=== PATIENT | female | born 1960 | race Caucasian/White ===

== ENCOUNTER 2018-08-20 17:03 | Emergency (ER) | payer OTHER ==
[~2018-08-20] VITALS: Ht 162.6 cm; Wt 49.9 kg
[2018-08-20 17:13] VITALS: BP 179/99
--- NOTE | 2018-08-20 17:18 | NUR ---
PLACED ON WHEELCHAIR-, TAKEN TO ER LOBBY TO WAIT FOR AVAILABLE ROOM FOR MD DE ANDA. PT'S FAMILY MEMBER WITH HER
--- NOTE | 2018-08-20 19:47 | NUR ---
PT taken to bed 03 by wheelchair.
[2018-08-20] MEDS ORDERED: NACL 0.9% 1,000 ML IV ONE (20:15)
--- NOTE | 2018-08-20 20:21 | NUR ---
EKG PERFORMED AT BEDSIDE. PT COVERED IN GOWN AND BLANKET
[2018-08-20 21:09] LABS: BASOPHILS % (AUTO) 0.8 % (0.0-2.0); EOSINOPHILS % (AUTO) 0.8 % (0.0-4.0); HEMATOCRIT 41.8 % (36-48); HEMOGLOBIN 13.7 g/dL (12.0-16.0); LYMPHOCYTES # (AUTO) 1.6 K/uL (2.5-16.5); LYMPHOCYTES % (AUTO) 31.5 % (20.5-51.1); MEAN CORPUSCULAR HEMOGLOBIN 32 pg (27-31); MEAN CORPUSCULAR HGB CONC 33 g/dL (33-37); MEAN CORPUSCULAR VOLUME 98.7 fL (80-94); MONOCYTES # (AUTO) 0.3 K/uL (0.8-1.0); MONOCYTES % (AUTO) 6.5 % (1.7-9.3); NEUTROPHILS # (AUTO) 3.1 K/uL (1.8-7.7); NEUTROPHILS % (AUTO) 60.4 % (42.2-75.2); PLATELET COUNT (AUTO) 254 K/uL (140-450); RED BLOOD CELL COUNT(AUTO) 4.23 MIL/uL (4.20-5.40); RED CELL DISTRIBUTION WIDTH 13.2 % (11.6-13.7); WHITE BLOOD COUNT (AUTO) 5.2 K/uL (4.8-10.8)
[2018-08-20 21:10] LABS: PROTHROMBIN TIME 9.3 secs (10.8-13.4)
[2018-08-20 21:11] LABS: ANION GAP 15.7 (8-16); CARBON DIOXIDE 24.1 mmol/L (21-32); CREATININE 0.8 mg/dL (0.6-1.3); POTASSIUM 3.8 mmol/L (3.5-5.1); TOTAL BILIRUBIN 0.3 mg/dL (0.0-1.0)
[2018-08-20 21:12] LABS: ALBUMIN 4.1 g/dL (3.4-5.0)
[2018-08-20] MEDS ORDERED: LORazepam 2 MG/ML VIAL IVP ONE (21:20)
[2018-08-20 21:56] LABS: APPEARANCE,URINE CLEAR (CLEAR); BILIRUBIN,URINE NEGATIVE (NEGATIVE); BLOOD, URINE NEGATIVE (NEGATIVE); COLOR,URINE YELLOW (YELLOW); LEUKOCYTE ESTERASE ,URINE NEGATIVE (NEGATIVE); NITRITE, URINE NEGATIVE (NEGATIVE); UGLUCOSE NEGATIVE (NEGATIVE)
[2018-08-20 22:20] VITALS: BP 151/49
== END 2018-08-20 22:21 | disposition home or self-care (01) ==
LOC: MED 17:03
DX: F43.9 Reaction to severe stress, unspecified (principal); I10 Essential (primary) hypertension; G43.909 Migraine, unspecified, not intractable, without status migrainosus
CPT/HCPCS: 36415; 70450; 71045; 80053; 81003; 84484; 85025; 85610; 85730; 93005; 96374; 99284; J2060; J7030

== ENCOUNTER 2023-04-21 18:01 | Observation (INO) | payer OTHER ==
[~2023-04-21] VITALS: Ht 157.5 cm; Wt 59.0 kg
[2023-04-21 18:03] VITALS: BP 169/80; PULSE 110; RESP 20; TEMP 98.8; O2SAT 99
[2023-04-21] MEDS ORDERED: MORPHINE SULFATE 4 MG/ML SYR IVP ONE (19:20)
[2023-04-21] MEDS ORDERED: ONDANSETRON 4 MG/2 ML VIAL IVP ONE (19:20)
[2023-04-21 19:22] LABS: BASOPHILS # (AUTO) 0.1 K/uL (0.00-0.22); BASOPHILS % (AUTO) 0.7 % (0.0-2.0); EOSINOPHILS # (AUTO) 0.1 K/uL (0-0.4); EOSINOPHILS % (AUTO) 0.7 % (0.0-4.0); HEMATOCRIT 41.5 % (36-48); HEMOGLOBIN 14.2 g/dL (12.0-16.0); LYMPHOCYTES # (AUTO) 2.2 K/uL (2.5-16.5); LYMPHOCYTES % (AUTO) 23.6 % (20.5-51.1); MEAN CORPUSCULAR HEMOGLOBIN 32 pg (27-31); MEAN CORPUSCULAR HGB CONC 34 g/dL (33-37); MEAN CORPUSCULAR VOLUME 93.2 fL (80-94); MONOCYTES # (AUTO) 0.5 K/uL (0.8-1.0); MONOCYTES % (AUTO) 5.5 % (1.7-9.3); NEUTROPHILS # (AUTO) 6.5 K/uL (1.8-7.7); NEUTROPHILS % (AUTO) 69.5 % (42.2-75.2); PLATELET COUNT (AUTO) 274 K/uL (140-450); RED BLOOD CELL COUNT(AUTO) 4.45 MIL/uL (4.20-5.40); RED CELL DISTRIBUTION WIDTH 13.8 % (11.6-13.7); WHITE BLOOD COUNT (AUTO) 9.3 K/uL (4.8-10.8)
[2023-04-21 19:33] LABS: ALBUMIN 4.1 g/dL (3.4-5.0); ANION GAP 16.2 (8-16); CALCIUM 9.2 mg/dL (8.5-10.1); CARBON DIOXIDE 25.1 mmol/L (21-32); CREATININE 0.9 mg/dL (0.6-1.3); POTASSIUM 4.3 mmol/L (3.5-5.1); TOTAL BILIRUBIN 0.2 mg/dL (0.0-1.0); TOTAL PROTEIN, SERUM 7.7 g/dL (6.4-8.2)
[2023-04-21] MEDS ORDERED: diphenhydrAMINE 50 MG/ML VIAL IVP ONE (19:55)
[2023-04-21] MEDS ORDERED: ACETAMINOPHEN 325 MG TAB PO PRN (21:15)
[2023-04-21] MEDS ORDERED: ONDANSETRON 4 MG/2 ML VIAL IVP PRN (21:15)
[2023-04-21 21:35] LABS: APPEARANCE,URINE CLEAR (CLEAR); BILIRUBIN,URINE NEGATIVE (NEGATIVE); BLOOD, URINE TRACE-I (NEGATIVE); COLOR,URINE YELLOW (YELLOW); LEUKOCYTE ESTERASE ,URINE NEGATIVE (NEGATIVE); NITRITE, URINE NEGATIVE (NEGATIVE); PROTEIN,URINE NEGATIVE (NEGATIVE); UGLUCOSE NEGATIVE (NEGATIVE); UROBILINOGEN,URINE 0.2 EU/dL (0.2 - 1)
[2023-04-21 21:41] LABS: BACTERIA,URINE FEW /HPF (None Seen); RBC,URINE 0-5 /HPF (0-5); SQUAMOUS EPITHELIAL CELL,UR 0-3 (FEW) /LPF (0-3 (FEW)); WBC,URINE 0-5 /HPF (0-5)
[2023-04-21] MEDS ORDERED: QUET25TA PO (21:49)
[2023-04-21] MEDS ORDERED: PRAZ1CAP5 PO (21:49)
[2023-04-21] MEDS ORDERED: NIFE-184 PO (21:49)
[2023-04-21] MEDS ORDERED: LURA20TA PO (21:49)
[2023-04-21] MEDS ORDERED: LURA60TA PO (21:49)
[2023-04-21] MEDS ORDERED: DULO20EC PO (21:49)
[2023-04-21] MEDS ORDERED: SERT-515 PO (21:49)
[2023-04-21] MEDS ORDERED: ROPI2TER3 PO (21:49)
[2023-04-21] MEDS ORDERED: DOXE3TAB3 PO (21:49)
[2023-04-21 21:55] VITALS: PULSE 68; RESP 18; O2SAT 99
[2023-04-21 22:04] VITALS: BP 119/77; PULSE 68; PULSE 70; RESP 18; TEMP 97.9; O2SAT 99
[2023-04-21] MEDS: NITROGLYCERIN 0.4 MG TAB SL PRN ×2 (22:43→22:51)
[2023-04-21] MEDS: NACL 0.9% 1,000 ML IV SCH (22:43)
[2023-04-21] MEDS: MORPHINE SULFATE 2 MG/ML SYR IVP PRN (23:30)
[2023-04-21 23:55] VITALS: PULSE 68
[2023-04-22] VITALS (7 sets, daily range): BP systolic 138–169; BP diastolic 76–90; PULSE 60–124; RESP 16–21; TEMP 97–98.8; O2SAT 96–100
[2023-04-22] MEDS: diphenhydrAMINE 50 MG/ML VIAL IVP PRN ×3 (01:52→18:03)
[2023-04-22] MEDS: MORPHINE SULFATE 2 MG/ML SYR IVP PRN ×2 (05:14→11:19)
[2023-04-22] MEDS: LORazepam 2 MG/ML VIAL IVP PRN ×2 (06:45→10:28)
[2023-04-22 06:55] LABS: BASOPHILS # (AUTO) 0.1 K/uL (0.00-0.22); EOSINOPHILS # (AUTO) 0.1 K/uL (0-0.4); EOSINOPHILS % (AUTO) 1.6 % (0.0-4.0); HEMATOCRIT 39.2 % (36-48); HEMOGLOBIN 13.2 g/dL (12.0-16.0); LYMPHOCYTES # (AUTO) 2.7 K/uL (2.5-16.5); LYMPHOCYTES % (AUTO) 32.9 % (20.5-51.1); MEAN CORPUSCULAR HEMOGLOBIN 32 pg (27-31); MEAN CORPUSCULAR HGB CONC 34 g/dL (33-37); MEAN CORPUSCULAR VOLUME 94.6 fL (80-94); MONOCYTES # (AUTO) 0.7 K/uL (0.8-1.0); MONOCYTES % (AUTO) 8.2 % (1.7-9.3); NEUTROPHILS # (AUTO) 4.6 K/uL (1.8-7.7); NEUTROPHILS % (AUTO) 56.3 % (42.2-75.2); PLATELET COUNT (AUTO) 275 K/uL (140-450); RED BLOOD CELL COUNT(AUTO) 4.15 MIL/uL (4.20-5.40); RED CELL DISTRIBUTION WIDTH 14.1 % (11.6-13.7); WHITE BLOOD COUNT (AUTO) 8.2 K/uL (4.8-10.8)
[2023-04-22 07:14] LABS: ALBUMIN 3.7 g/dL (3.4-5.0); CALCIUM 8.3 mg/dL (8.5-10.1); CREATININE 0.9 mg/dL (0.6-1.3); MAGNESIUM 2.2 mg/dL (1.8-2.4); TOTAL BILIRUBIN 0.2 mg/dL (0.0-1.0); TOTAL PROTEIN, SERUM 6.9 g/dL (6.4-8.2)
[2023-04-22] MEDS ORDERED: hydrALAZINE 20 MG/ML VIAL IVP PRN (08:25)
[2023-04-22] MEDS: NACL 0.9% 1,000 ML IV SCH ×3 (09:27→23:55)
[2023-04-22] MEDS ORDERED: levETIRAcetam 100 MG/ML VIAL IV ONE (10:44)
[2023-04-22] MEDS ORDERED: levETIRAcetam 1,000 MG in NACL 0.9% 100 ML IV SCH (11:15)
[2023-04-22] MEDS ORDERED: LORazepam 2 MG/ML VIAL IVP PRN (11:25)
[2023-04-22] MEDS ORDERED: PANT40EC PO (16:16)
[2023-04-22] MEDS ORDERED: VITB12 PO (16:16)
[2023-04-22] MEDS ORDERED: TRAZ-343 PO (16:16)
[2023-04-22] MEDS ORDERED: SERT100T PO (16:16)
[2023-04-22] MEDS ORDERED: traZODone 50 MG TAB PO PRN (22:05)
[2023-04-23] VITALS: BP 150/78; PULSE 67; PULSE 71; RESP 18; TEMP 98.8; O2SAT 96
[2023-04-23] MEDS: diphenhydrAMINE 50 MG/ML VIAL IVP PRN (02:36)
[2023-04-23 04:00] VITALS: BP 156/86; PULSE 72; PULSE 89; RESP 18; TEMP 97.8; O2SAT 96
[2023-04-23 08:00] VITALS: BP 140/82; PULSE 74; PULSE 77; RESP 17; TEMP 98; O2SAT 100; O2SAT 98
[2023-04-23] MEDS ORDERED: DULoxetine 30 MG CAPDR PO SCH (09:00)
[2023-04-23 12:00] VITALS: BP 125/68; PULSE 61; PULSE 62; RESP 18; TEMP 98.4; O2SAT 97
[2023-04-23] MEDS: NACL 0.9% 1,000 ML IV SCH (13:28)
[2023-04-23 15:12] VITALS: BP 125/68; PULSE 62; RESP 18; TEMP 98.4
== END 2023-04-23 15:40 | disposition home or self-care (01) ==
LOC: MED 18:01 → MTU 21:19
PROVIDERS: ADMIT Hospitalist; ATTEND Hospitalist
DX: R56.9 Unspecified convulsions (principal); R07.89 Other chest pain; I11.9 Hypertensive heart disease without heart failure; K21.9 Gastro-esophageal reflux disease without esophagitis; F17.200 Nicotine dependence, unspecified, uncomplicated; Z90.710 Acquired absence of both cervix and uterus; Z79.899 Other long term (current) drug therapy
CPT/HCPCS: 36415; 71045; 80053; 81001; 83735; 83880; 84484; 85025; 87081; 93005; 94760; 95816; 96361; 96365; 96375; 96376; 99285; C8929; G0378; J0360; J1200; J1953; J2060; J2270; J2405; Q0092